=== PATIENT | female | born 1975 | race Asian ===

== ENCOUNTER 2020-06-18 12:27 | Emergency (ER) | payer OTHER ==
[~2020-06-18] VITALS: Ht 170.2 cm; Wt 60.3 kg
[2020-06-18 12:35] VITALS: BP 124/81; Ht 170.2 cm; Wt 60.3 kg
== END 2020-06-18 13:20 | disposition home or self-care (01) ==
LOC: ED 12:27
DX: S61.432A Puncture wound without foreign body of left hand, initial encounter (principal); S61.431A Puncture wound without foreign body of right hand, initial encounter; W55.01XA Bitten by cat, initial encounter; Y93.89 Activity, other specified; Y92.89 Other specified places as the place of occurrence of the external cause; Y99.8 Other external cause status
CPT/HCPCS: 90715